=== PATIENT | female | born 1960 | race Caucasian/White ===

== ENCOUNTER 2017-06-21 21:51 | Emergency (ER) | payer SELFPAY, OTHER | END 2017-06-22 01:56 | disposition left against medical advice (07) | LOC: E/R 21:51 | DX: Z53.21 Procedure and treatment not carried out due to patient leaving prior to being seen by health care provider (principal) ==

== ENCOUNTER 2017-06-24 07:10 | Emergency (ER) | payer OTHER | END 2017-06-24 13:33 | disposition home or self-care (01) | LOC: FTE 07:10 | DX: J06.9 Acute upper respiratory infection, unspecified (principal); F17.210 Nicotine dependence, cigarettes, uncomplicated | CPT/HCPCS: 99284; Z7502 ==

== ENCOUNTER 2018-05-20 10:52 | Emergency (ER) | payer OTHER ==
[2018-05-20] MEDS: KETOROLAC 60 MG INJ IM (11:48)
[2018-05-20 11:59] LABS: ADD UMIC YES; UR ASCORBIC ACID 40 mg/dL (NEGATIVE); UR BACTERIA FEW /HPF (NONE SEEN); UR BILIRUBIN (Dip) NEGATIVE (NEGATIVE); UR BLOOD (Dip) NEGATIVE (NEGATIVE); UR CLARITY CLOUDY (CLEAR); UR COLOR AMBER (YELLOW); UR GLUCOSE (Dip) NEGATIVE (NEGATIVE); UR KETONES (Dip) NEGATIVE (NEGATIVE); UR LEUKOCYTE ESTERASE (Dip) NEGATIVE Leu/ul (NEGATIVE); UR MUCUS FEW /HPF (NONE SEEN); UR NITRITE (Dip) NEGATIVE (NEGATIVE); UR RBC 3 /HPF (0-5); UR SPECIFIC GRAVITY (Dip) 1.023 (1.003-1.030); UR SQUAMOUS EPITHELIAL CELL FEW /HPF (FEW); UR TOTAL PROTEIN (Dip) NEGATIVE (NEGATIVE); UR UROBILINOGEN (Dip) NEGATIVE (NEGATIVE); UR WBC 1 /HPF (0-5)
== END 2018-05-20 13:29 | disposition home or self-care (01) ==
LOC: FTE 10:52
DX: M54.5 Low back pain (principal); R10.2 Pelvic and perineal pain; Z87.891 Personal history of nicotine dependence
CPT/HCPCS: 76830; 76856; 81001; 96372; 99285-25

== ENCOUNTER 2018-06-03 11:29 | Emergency (ER) | payer OTHER | END 2018-06-03 13:14 | disposition home or self-care (01) | LOC: FTE 11:29 | DX: R50.9 Fever, unspecified (principal); R09.81 Nasal congestion; F17.210 Nicotine dependence, cigarettes, uncomplicated | CPT/HCPCS: 99283 ==